=== PATIENT | female | born 1985 | race African-American/Black ===

== ENCOUNTER 2017-05-07 02:26 | Inpatient (IN) | payer MEDICAID ==
[~2017-05-07] VITALS: Ht 167.6 cm; Wt 81.6 kg
[2017-05-07] MEDS ORDERED: DEXT 5%/LR + PITOCIN 20UNITS/L 1,000 ML IV SCH ×2 (02:56→07:04)
[2017-05-07] MEDS ORDERED: LACTATED RINGERS 1,000 ML IV SCH (02:56)
[2017-05-07] MEDS ORDERED: BUTORPHANOL TARTRATE 2 MG/ML VIAL IV PRN (03:00)
[2017-05-07] MEDS ORDERED: LIDOCAINE HCL 1% 20ML VIAL (Pyxis) INJ INFIL SCH (03:00)
[2017-05-07] MEDS ORDERED: NALOXONE HCL 0.4 MG/ML 1ML VIAL IM PRN (03:00)
[2017-05-07] MEDS ORDERED: CLINDAMYCIN 900 MG in DEXTROSE 5% WATER 50 ML IV SCH ×2 (03:00→06:00)
[2017-05-07] MEDS ORDERED: METHYLERGONOVINE MALEATE 0.2 MG/ML IM PRN (03:00)
[2017-05-07 03:30] LABS: BASOPHILS % 0.4 % (0.0-2.0); EOSINOPHILS % 0.5 % (0.0-5.0); HEMATOCRIT. 34.7 % (36.0-48.0); LYMPHOCYTES % 21.7 % (20.0-50.0); MEAN CORPUSCULAR HEMOGLOBIN 31.1 pg (28.0-32.0); MEAN CORPUSCULAR VOLUME 90.1 fL (81.0-99.0); MEAN PLATELET VOLUME 8.5 fl (7.4-10.4); MONOCYTES % 8.1 % (2.0-8.0); NEUTROPHILS % 69.3 % (40.0-76.0); PLATELET 236 x1000/uL (130-400); RED BLOOD CELL COUNT 3.85 mill/uL (4.2-5.4); RED CELL DISTRIBUTION WIDTH 13.1 % (11.6-14.6)
[2017-05-07 03:36] LABS: INR 0.9; PARTIAL THROMBOPLASTIN TIME 25.6 sec (23.4-31.0); PROTHROMBIN TIME 9.5 sec (9.4-11.6)
[2017-05-07 03:58] LABS: CHLORIDE 107 mEq/L (98-107)
[2017-05-07 04:21] LABS: HEPATITIS B SURFACE ANTIGEN NEGATIVE; RUBELLA IGG 30.9 IU/mL (4.99-10)
[2017-05-07 04:51] LABS: CLARITY URINE CLEAR (CLEAR); COLOR URINE YELLOW (YELLOW); KETONES URINE NEGATIVE (NEGATIVE); LEUKOCYTE ESTERASE URINE NEGATIVE (NEGATIVE); NITRITE URINE NEGATIVE (NEGATIVE); OCCULT BLOOD URINE NEGATIVE (NEGATIVE); PH URINE 6.5 (4.5-8.0); PROTEIN URINE NEGATIVE (NEGATIVE); UROBILINOGEN URINE 0.2 E.U./dL (0.2-1.0)
[2017-05-07 05:05] LABS: *AMPHETAMINES SCREEN URINE NEGATIVE (NEGATIVE); *BARBITURATES SCREEN URINE NEGATIVE (NEGATIVE); *BENZODIAZEPINES SCREEN URINE NEGATIVE (NEGATIVE); *COCAINE SCREEN URINE NEGATIVE (NEGATIVE); CANNABINOID URINE SCREEN NEGATIVE (NEGATIVE); METHADONE URINE SCREEN NEGATIVE (NEGATIVE); OPIATES URINE SCREEN NEGATIVE (NEGATIVE)
[2017-05-07] MEDS ORDERED: FENTANYL CITRATE/PF 50MCG/ML 2ML VIAL ONE (05:06)
[2017-05-07] MEDS ORDERED: BUPIVACAINE HCL/PF 0.25% (2.5MG/ML) 10ML ONE (05:06)
[2017-05-07] MEDS ORDERED: BUPIVACAINE HCL/NS/PF EPIDURAL 100 ML EP ONE (05:06)
[2017-05-07 05:08] LABS: PHENCYCLIDINE URINE SCREEN PRESUMTIVE POSITIVE (NEGATIVE)
[2017-05-07] MEDS ORDERED: HYDROMORPHONE HCL/PF 2MG/ML CPJ IV PRN (05:30)
[2017-05-07] MEDS ORDERED: ONDANSETRON HCL 4MG/2ML VIAL IV PRN (05:30)
[2017-05-07] MEDS ORDERED: NALOXONE HCL 0.4 MG/ML 1ML VIAL IV PRN (05:30)
[2017-05-07] MEDS ORDERED: LABETALOL 5MG/ML SYR 20 MG/4 ML SYRINGE IV PRN (05:30)
[2017-05-07] MEDS ORDERED: KETOROLAC 10MG TABLET PO NR (05:30)
[2017-05-07] MEDS ORDERED: MEPERIDINE HCL/PF 25MG/ML CPJ IV PRN (05:30)
[2017-05-07] MEDS ORDERED: LIDOCAINE HCL/PF 1% 10 MG/ML 5ML VIAL ONE (06:53)
[2017-05-07] MEDS ORDERED: BENZOCAINE/LANOLIN/ALOE VERA SPRAY TOP PRN (07:15)
[2017-05-07] MEDS ORDERED: IBUPROFEN 400MG TABLET PO PRN (07:15)
[2017-05-07] MEDS ORDERED: DIPHENHYDRAMINE 25MG CAPSULE PO PRN (07:15)
[2017-05-07] MEDS ORDERED: HEMORRHOIDAL SUPP PR PRN (07:15)
[2017-05-07] MEDS ORDERED: OXYCODONE HCL/ACETAMINOPHEN 5/325MG TABLET PO PRN (07:15)
[2017-05-07] MEDS ORDERED: LANOLIN OINT 0.25 GM TUBE TOP PRN (07:15)
[2017-05-07] MEDS ORDERED: GLYCERIN/WITCH HAZEL LEAF MEDICATED PAD TOP PRN (07:15)
[2017-05-07] MEDS ORDERED: BISACODYL 10MG SUPP PR PRN (07:15)
[2017-05-07] MEDS: IBUPROFEN 800MG TABLET PO PRN ×2 (07:58→16:16)
[2017-05-07 09:00] VITALS: BP 121/76
[2017-05-07 09:30] VITALS: BP 115/64
[2017-05-07 10:00] VITALS: BP 123/64
[2017-05-07 13:48] LABS: BASOPHILS % 0.2 % (0.0-2.0); EOSINOPHILS % 0.1 % (0.0-5.0); HEMATOCRIT. 34.5 % (36.0-48.0); HEMOGLOBIN. 11.6 g/dL (12.0-16.0); LYMPHOCYTES % 10.7 % (20.0-50.0); MEAN CORPUSCULAR HEMOGLOBIN 30.9 pg (28.0-32.0); MEAN CORPUSCULAR VOLUME 91.8 fL (81.0-99.0); MEAN PLATELET VOLUME 8.4 fl (7.4-10.4); PLATELET 224 x1000/uL (130-400); RED BLOOD CELL COUNT 3.76 mill/uL (4.2-5.4); RED CELL DISTRIBUTION WIDTH 13.3 % (11.6-14.6)
[2017-05-07 17:00] VITALS: BP 111/66
[2017-05-07 19:25] VITALS: BP 119/72
[2017-05-07] MEDS: DOCUSATE SODIUM 100MG CAPSULE PO SCH (21:00)
[2017-05-07] MEDS: SIMETHICONE 80MG TABLET CHEW PO SCH (21:16)
[2017-05-07 22:00] VITALS: BP 119/72
[2017-05-08] MEDS: IBUPROFEN 800MG TABLET PO PRN ×3 (00:57→20:10)
[2017-05-08] MEDS ORDERED: INFLUENZA VIRUS VACCINE 0.5ML SYR IM ONE (08:00)
[2017-05-08] MEDS ORDERED: TETANUS, DIPHTHERIA, PERTUSSIS VAC/PF 0.5ML (>7YR OLD) IM ONE (08:00)
[2017-05-08 08:20] VITALS: BP 110/54
[2017-05-08] MEDS: PRENATAL VIT/FE FUMARATE/FA TABLET PO SCH (09:01)
[2017-05-08] MEDS: SIMETHICONE 80MG TABLET CHEW PO SCH ×5 (09:02→20:08)
[2017-05-08] MEDS ORDERED: MEDROXYPROGESTERONE ACETATE 150MG/ML VIAL IM NR (12:30)
[2017-05-08] MEDS: FERROUS SULFATE 325MG TABLET PO SCH ×3 (13:00→15:49)
[2017-05-08 16:20] VITALS: BP 120/76
[2017-05-08 19:55] VITALS: BP 137/88
[2017-05-08] MEDS: DOCUSATE SODIUM 100MG CAPSULE PO SCH (20:08)
[2017-05-09] VITALS: BP 117/53
[2017-05-09 04:00] VITALS: BP 118/65
[2017-05-09 08:10] VITALS: BP 126/63
[2017-05-09] MEDS ORDERED: INFLUENZA VIRUS VACCINE 0.5ML SYR IM ONE (08:30)
[2017-05-09] MEDS: SIMETHICONE 80MG TABLET CHEW PO SCH (08:57)
[2017-05-09] MEDS: PRENATAL VIT/FE FUMARATE/FA TABLET PO SCH (08:57)
[2017-05-09] MEDS: IBUPROFEN 800MG TABLET PO PRN (08:58)
== END 2017-05-09 10:50 | disposition home or self-care (01) | DRG 560 ==
LOC: OBSVTOIN 02:26 → L&D 02:26 → 7EST PP/OB 08:52
PROVIDERS: ADMIT Specialist; ATTEND Specialist
PROC: 10E0XZZ Delivery of Products of Conception, External Approach (ICD-10-PCS; 2017-05-07)
PROC: 3E0R3BZ Introduction of Anesthetic Agent into Spinal Canal, Percutaneous Approach (ICD-10-PCS; 2017-05-07)
PROC: 00HU33Z Insertion of Infusion Device into Spinal Canal, Percutaneous Approach (ICD-10-PCS; 2017-05-07)
PROC: 0KQM0ZZ Repair Perineum Muscle, Open Approach (ICD-10-PCS; principal; 2017-05-07 06:43)
DX: O99.324 Drug use complicating childbirth (principal); F16.10 Hallucinogen abuse, uncomplicated; O71.4 Obstetric high vaginal laceration alone; Z37.0 Single live birth; Z3A.38 38 weeks gestation of pregnancy; Z72.0 Tobacco use
CPT/HCPCS: 36415; 80053; 80305; 81003; 83992; 85025; 85610; 85730; 86592; 86703; 86762; 86850; 86900; 87340; 90686; 90715; J0595; J1050; J2590; J3010; J3490; J7060; A4315

== ENCOUNTER 2018-11-13 13:40 | Emergency (ER) | payer SELFPAY ==
[~2018-11-13] VITALS: Ht 170.2 cm; Wt 74.0 kg
[2018-11-13] MEDS ORDERED: SODIUM CHLORIDE 0.9% 1,000 ML IV ONE (15:00)
[2018-11-13 15:46] LABS: BASOPHILS % 0.2 % (0.0-2.0); EOSINOPHILS % 0.1 % (0.0-5.0); HEMATOCRIT. 36.5 % (36.0-48.0); HEMOGLOBIN. 12.7 g/dL (12.0-16.0); LYMPHOCYTES % 7.2 % (20.0-50.0); MEAN CORPUSCULAR HEMOGLOBIN 29.5 pg (28.0-32.0); MEAN CORPUSCULAR VOLUME 85.1 fL (81.0-99.0); MEAN PLATELET VOLUME 8.2 fl (7.4-10.4); MONOCYTES % 7.3 % (2.0-8.0); NEUTROPHILS % 85.2 % (40.0-76.0); PLATELET 237 x1000/uL (130-400); RED BLOOD CELL COUNT 4.29 mill/uL (4.2-5.4); RED CELL DISTRIBUTION WIDTH 13.5 % (11.6-14.6)
[2018-11-13 15:50] LABS: CHLORIDE 103 mEq/L (98-107)
[2018-11-13 15:55] LABS: ETHANOL BLOOD < 10 mg/dL
[2018-11-13] MEDS ORDERED: POTASSIUM CHLORIDE 20MEQ TABLET SR PO ONE (16:00)
[2018-11-13 16:09] LABS: CLARITY URINE CLOUDY (CLEAR); COLOR URINE YELLOW (YELLOW); KETONES URINE NEGATIVE (NEGATIVE); LEUKOCYTE ESTERASE URINE 2+ (NEGATIVE); NITRITE URINE NEGATIVE (NEGATIVE); OCCULT BLOOD URINE 1+ (NEGATIVE); PROTEIN URINE NEGATIVE (NEGATIVE); UROBILINOGEN URINE 0.2 E.U./dL (0.2-1.0)
[2018-11-13 16:21] LABS: *AMPHETAMINES SCREEN URINE NEGATIVE (NEGATIVE); *BARBITURATES SCREEN URINE NEGATIVE (NEGATIVE); *COCAINE SCREEN URINE NEGATIVE (NEGATIVE); METHADONE URINE SCREEN NEGATIVE (NEGATIVE); OPIATES URINE SCREEN NEGATIVE (NEGATIVE)
[2018-11-13 16:22] LABS: CANNABINOID URINE SCREEN NEGATIVE (NEGATIVE)
[2018-11-13 16:41] LABS: *BENZODIAZEPINES SCREEN URINE PRESUMTIVE POSITIVE (NEGATIVE); PHENCYCLIDINE URINE SCREEN PRESUMTIVE POSITIVE (NEGATIVE)
[2018-11-13] MEDS ORDERED: CEPHALEXIN 250MG CAPSULE PO ONE (17:30)
[2018-11-13] MEDS ORDERED: LORAZEPAM 1MG TABLET PO ONE (23:45)
[2018-11-14] MEDS ORDERED: HALOPERIDOL LACTATE 5MG/ML VIAL IM ONE
[2018-11-14 14:15] VITALS: BP 118/76
== END 2018-11-14 14:39 | disposition home or self-care (01) ==
LOC: ER 14:21
DX: T40.995A Adverse effect of other psychodysleptics [hallucinogens], initial encounter (principal); N39.0 Urinary tract infection, site not specified; F12.10 Cannabis abuse, uncomplicated; F17.200 Nicotine dependence, unspecified, uncomplicated; Z88.0 Allergy status to penicillin; Y92.89 Other specified places as the place of occurrence of the external cause
CPT/HCPCS: 36415; 80053; 80305; 80320; 81003; 85025; 96372; 99284; J1630; J7030; 93005; G0480

== ENCOUNTER 2018-12-05 23:34 | Emergency (ER) | payer SELFPAY ==
[~2018-12-05] VITALS: Ht 167.6 cm; Wt 77.0 kg
[2018-12-06 01:11] VITALS: BP 141/93
== END 2018-12-06 01:34 | disposition home or self-care (01) ==
LOC: ER 23:34
DX: F16.10 Hallucinogen abuse, uncomplicated (principal)
CPT/HCPCS: 93005; 99283

== ENCOUNTER 2020-09-03 18:17 | Emergency (ER) | payer OTHER ==
[~2020-09-03] VITALS: Ht 157.5 cm; Wt 77.0 kg
[2020-09-03 18:24] VITALS: BP 119/73
== END 2020-09-03 22:11 | disposition home or self-care (01) ==
LOC: ER 19:16
DX: H54.61 Unqualified visual loss, right eye, normal vision left eye (principal); Z88.0 Allergy status to penicillin
CPT/HCPCS: 99281

== ENCOUNTER 2022-01-09 22:19 | Inpatient (IN) | payer MEDICAID, OTHER ==
[~2022-01-09] VITALS: Ht 170.2 cm; Wt 77.1 kg
[2022-01-09] MEDS ORDERED: NALOXONE HCL 0.4 MG/ML 1ML VIAL IM PRN (22:45)
[2022-01-09] MEDS ORDERED: RHO(D) IMMUNE GLOBULIN 300 MCG/SYR IM NR (22:45)
[2022-01-09] MEDS ORDERED: OXYTOCIN 30 UNITS/500ML NS PMX 500 ML IV SCH ×2 (22:45→23:00)
[2022-01-09] MEDS ORDERED: LIDOCAINE HCL 1% 20ML VIAL (Pyxis) INJ INFIL SCH (22:45)
[2022-01-09] MEDS ORDERED: METHYLERGONOVINE MALEATE 0.2 MG/ML IM PRN ×2 (22:45→23:00)
[2022-01-09] MEDS ORDERED: LANOLIN OINT 7GM TUBE TOP PRN (23:00)
[2022-01-09] MEDS ORDERED: DIPHENHYDRAMINE 25MG CAPSULE PO PRN (23:00)
[2022-01-09] MEDS ORDERED: IBUPROFEN 400MG TABLET PO PRN (23:00)
[2022-01-09] MEDS ORDERED: DEXT 5%/LACTATED RINGERS 1,000 ML IV SCH (23:15)
[2022-01-09] MEDS ORDERED: PNV1TABL76 PO (23:17)
[2022-01-10 00:37] LABS: BASOPHILS % 0.2 % (0.0-2.0); EOSINOPHILS % 0.6 % (0.0-5.0); HEMATOCRIT. 37.8 % (36.0-48.0); HEMOGLOBIN. 12.9 g/dL (12.0-16.0); LYMPHOCYTES % 23.3 % (20.0-50.0); MEAN CORPUSCULAR HEMOGLOBIN 30.7 pg (28.0-32.0); MEAN CORPUSCULAR VOLUME 89.6 fL (81.0-99.0); MONOCYTES % 7.7 % (2.0-8.0); NEUTROPHILS % 68.2 % (40.0-76.0); PLATELET 256 x1000/uL (130-400); RED BLOOD CELL COUNT 4.22 mill/uL (4.2-5.4); RED CELL DISTRIBUTION WIDTH 15.5 % (11.6-14.6)
[2022-01-10] MEDS: IBUPROFEN 800MG TABLET PO PRN ×3 (00:38→21:11)
[2022-01-10 00:45] LABS: INR 0.9; PARTIAL THROMBOPLASTIN TIME 26.9 sec (23.4-31.0); PROTHROMBIN TIME 9.7 sec (9.6-11.0)
[2022-01-10 01:10] LABS: HEPATITIS B SURFACE ANTIGEN NEGATIVE
[2022-01-10 01:20] VITALS: BP 120/72
[2022-01-10] MEDS ORDERED: TETANUS, DIPHTHERIA, PERTUSSIS VAC/PF 0.5ML (>10YR OLD) IM ONE (02:45)
[2022-01-10 03:30] VITALS: BP 116/66
[2022-01-10 06:43] LABS: BASOPHILS % 0.2 % (0.0-2.0); EOSINOPHILS % 0.4 % (0.0-5.0); HEMATOCRIT. 32.9 % (36.0-48.0); HEMOGLOBIN. 11.2 g/dL (12.0-16.0); LYMPHOCYTES % 14.8 % (20.0-50.0); MEAN CORPUSCULAR HEMOGLOBIN 30.2 pg (28.0-32.0); MEAN CORPUSCULAR VOLUME 88.9 fL (81.0-99.0); MEAN PLATELET VOLUME 8.8 fl (7.4-10.4); MONOCYTES % 6.8 % (2.0-8.0); NEUTROPHILS % 77.8 % (40.0-76.0); PLATELET 237 x1000/uL (130-400); RED CELL DISTRIBUTION WIDTH 15.4 % (11.6-14.6)
[2022-01-10 08:00] VITALS: BP 122/78
[2022-01-10] MEDS: ACETAMINOPHEN WITH CODEINE 300/30MG TABLET PO PRN ×3 (08:03→21:09)
[2022-01-10] MEDS ORDERED: PRENATAL VIT/FE FUMARATE/FA TABLET PO SCH (09:00)
[2022-01-10 09:27] LABS: CLARITY URINE CLEAR (CLEAR); COLOR URINE ORANGE (YELLOW); KETONES URINE NEGATIVE (NEGATIVE); LEUKOCYTE ESTERASE URINE 1+ (NEGATIVE); NITRITE URINE NEGATIVE (NEGATIVE); OCCULT BLOOD URINE 3+ (NEGATIVE); PH URINE 6.5 (4.5-8.0); PROTEIN URINE TRACE (NEGATIVE); SPECIFIC GRAVITY URINE 1.013 (1.005-1.030); UROBILINOGEN URINE 0.2 E.U./dL (0.2-1.0)
[2022-01-10 10:51] LABS: *AMPHETAMINES SCREEN URINE NEGATIVE (NEGATIVE); *BARBITURATES SCREEN URINE NEGATIVE (NEGATIVE); *BENZODIAZEPINES SCREEN URINE NEGATIVE (NEGATIVE); *COCAINE SCREEN URINE NEGATIVE (NEGATIVE); CANNABINOID URINE SCREEN NEGATIVE (NEGATIVE); METHADONE URINE SCREEN NEGATIVE (NEGATIVE); OPIATES URINE SCREEN NEGATIVE (NEGATIVE)
[2022-01-10 11:53] LABS: PHENCYCLIDINE URINE SCREEN PRESUMTIVE POSITIVE (NEGATIVE)
[2022-01-10 16:00] VITALS: BP 116/75
[2022-01-10 20:00] VITALS: BP 125/85
[2022-01-10] MEDS ORDERED: DOCUSATE SODIUM 100MG CAPSULE PO SCH (21:00)
[2022-01-11 04:00] VITALS: BP 130/58
[2022-01-11] MEDS: ACETAMINOPHEN WITH CODEINE 300/30MG TABLET PO PRN ×2 (04:12→10:03)
[2022-01-11 07:40] VITALS: BP 116/68
[2022-01-11] MEDS ORDERED: ACET-2708 MT (07:47)
[2022-01-11] MEDS ORDERED: FERR210T MT (07:47)
== END 2022-01-11 10:45 | disposition home or self-care (01) | DRG 560 ==
LOC: 8 EST LDRP 22:19 → OBSVTOIN 22:19 → 8EST 01-10 01:46
PROVIDERS: ADMIT Obstetrics & Gynecology; ATTEND Obstetrics & Gynecology
PROC: 10E0XZZ Delivery of Products of Conception, External Approach (ICD-10-PCS; principal; 2022-01-09)
DX: O62.3 Precipitate labor (principal); Z37.0 Single live birth; D62 Acute posthemorrhagic anemia; O90.81 Anemia of the puerperium; Z20.822 Contact with and (suspected) exposure to COVID-19; O99.324 Drug use complicating childbirth; F16.90 Hallucinogen use, unspecified, uncomplicated; Z88.0 Allergy status to penicillin; Z3A.37 37 weeks gestation of pregnancy
CPT/HCPCS: 36415; 80305; 81003; 83992; 85025; 86592; 86703; 86762; 86850; 86900; 87340; 87426; 90715; 99281; G0378; J2590